=== PATIENT | male | born 1945 ===

== ENCOUNTER 2021-02-03 06:00 | Outpatient (RCR) | payer MEDICARE, BC, SELFPAY | END 2021-03-04 23:59 | disposition home or self-care (01) | LOC: MPT 06:00 | PROVIDERS: Referring Provider Orthopaedic Surgery; Visit Provider Orthopaedic Surgery | DX: M17.11 Unilateral primary osteoarthritis, right knee (principal) | CPT/HCPCS: 97110; 97116; 97140; 97161 ==

== ENCOUNTER 2021-03-05 06:00 | Outpatient (RCR) | payer MEDICARE, OTHER, BC, SELFPAY | END 2021-04-04 23:59 | disposition home or self-care (01) | LOC: MPT 06:00 | PROVIDERS: Referring Provider Orthopaedic Surgery; Visit Provider Orthopaedic Surgery | DX: M17.11 Unilateral primary osteoarthritis, right knee (principal) | CPT/HCPCS: 97110; 97140; 97530 ==